=== PATIENT | female | born 1950 | race Caucasian/White ===

== ENCOUNTER 2018-03-12 06:16 | Day surgery (SDC) | payer MEDICARE, SELFPAY ==
[2018-03-12 06:57] VITALS: BP 142/83; PULSE 83; RESP 14; TEMP 36.8; O2SAT 96; BMI 40.6
--- NOTE | 2018-03-12 07:58 | HP.PCM_ITS ---
Problem List (1) Personal history of colonic polyps Status: Acute History of Present Illness Date of Admission: 03/12/18 The patient is a 68 year old F with personal history of colonic polyps. I last performed a colonoscopy on her approximately 3 years ago. She presents today f or repeat colonoscopy. Past Medical History Past Medical History (Chronic Problems): Chronic Problems Hypertension (Chronic) Allergies No Known Allergies Allergy (Verified 03/06/18 11:38) Home Medications: Ambulatory Orders Medication Instructions Recorded ALPRAZolam [Xanax] 0.125 mg PO BID PRN 01/24/13 Enalapril Maleate [Vasotec] 10 mg PO BID 01/24/13 Maprotiline HCl 25 mg PO QHS 01/24/13 Simvastatin [Zocor] 2.5 mg PO QHS 01/24/13 Verapamil [Calan Sr] 240 mg PO DAILY 01/24/13 L.acidoph,Paracasei, B.lactis 1 each PO DAILY 03/06/18 [Probiotic] Multivitamin [Multiple Vitamins] 1 each PO DAILY 03/06/18 Smoking Status: Never smoker Tobacco Use: Non-smoker - *Family History Paternal History Items: No pertinent history Review of Systems Cardiovascular: Denies: Chest Pain, Chest Pressure, Chest Tightness, Palpitations Respiratory: Denies: Cough, Hemoptysis, Shortness of breath at rest, Shortness of breath upon exertion, Wheezing Gastrointestinal: Denies: Abdominal Pain, Constipation, Diarrhea, Hematemesis, Nausea, Melena, Vomiting VTE Information - Inpt Only VTE Present on Admission: No VTE Mechan Device Prophylaxis: None VTE Pharm Prophylaxis ordered?: No Reason prophylaxis not ordered:: Treatment Not Indicated Patient Problems: Active and Suspected Problems Personal history of colonic polyps (Acute) - Physical Exam Lungs: Clear to auscultation Cardiovascular: Regular rate, Regular Rhythm, No murmurs Abdomen: Bowel Sounds Present, Soft, Non Tender, Non-Distended Vital Signs Temp Pulse Resp BP Pulse Ox 98.2 F 83 14 142/83 H 96 03/12/18 06:57 03/12/18 06:57 03/12/18 06:57 03/12/18 06:57 03/12/18 06:57 Oxygen Delivery Method Room Air Weight: 229 lb 8.019 oz Body Mass Index (BMI) 40.6 Assessment/Plan All Active Problems Personal history of colonic polyps (Acute) Fracture of distal radius ulnar angulati (Acute) Right fibular fracture (Acute) I plan to perform a colonoscopy on her. Risk benefits have been reviewed in great detail and the patient agrees to proceed
[2018-03-12 07:59] VITALS: BP 118/72; BP 142/83; PULSE 73; RESP 18; TEMP 36.7; O2SAT 97
--- NOTE | 2018-03-12 08:00 | OP.ENDO_ITS ---
Patient Name: Alyse Jones Procedure Date: 03/12/2018 7:35 AM Date of : 1950 Age: 68 Procedure: Colonoscopy Indications: High risk colon cancer surveillance: Personal history of colonic polyps Providers: Ceasar Barajas MD Medicines: See the Anesthesia note for documentation of the administered medications Patient Profile: This is a 68 year old female. Refer to note in patient chart for documentation of history and physical. Last Colonoscopy: 3 years ago. Complications: No immediate complications. Procedure: Pre-Anesthesia Assessment: - Prior to the procedure, a History and Physical was performed, and patient medications and allergies were reviewed. The patient's tolerance of previous anesthesia was also reviewed. The risks and benefits of the procedure and the sedation options and risks were discussed with the patient. All questions were answered, and informed consent was obtained. Prior Anticoagulants: The patient has taken no previous anticoagulant or antiplatelet agents. ASA Grade Assessment: III - A patient with severe systemic disease. After reviewing the risks and benefits, the patient was deemed in satisfactory condition to undergo the procedure. After I obtained informed consent, the scope was passed under direct vision. Throughout the procedure, the patient's blood pressure, pulse, and oxygen saturations were monitored continuously. The adult colonoscope was introduced through the anus and advanced to 7 cm into the ileum. The colonoscopy was performed without difficulty. The patient tolerated the procedure well. The quality of the bowel preparation was good. Scope In: Scope Out: Findings: The terminal ileum appeared normal. No biopsies or other specimens were collected for this exam. Multiple small-mouthed diverticula were found in the sigmoid colon. The exam was otherwise without abnormality on direct and retroflexion views. Impression: - The examined portion of the ileum was normal. No specimens collected. - Diverticulosis in the sigmoid colon. - The examination was otherwise normal on direct and retroflexion views. Recommendation: - Discharge patient to home. - Resume previous diet. - Continue present medications. - Repeat colonoscopy in 10 days for screening purposes. - Return to primary care physician at appointment to be scheduled. Procedure Code(s): --- Professional --- G0105, Colorectal cancer screening; colonoscopy on individual at high risk Diagnosis Code(s): --- Professional --- Z86.010, Personal history of colonic polyps K57.30, Diverticulosis of large intestine without perforation or abscess without bleeding CPT copyright 2017 [employer]. All rights reserved. The codes documented in this report are preliminary and upon associate professor of musicology review may be revised to meet current compliance requirements. MD Ceasar Flanagan MD 03/12/2018 8:00:29 AM This report has been signed electronically. Number of Addenda: 0 Note Initiated On: 03/12/2018 7:35 AM
[2018-03-12 08:05] VITALS: BP 109/58; BP 142/83; PULSE 71; RESP 16; O2SAT 97
[2018-03-12 08:10] VITALS: BP 114/63; BP 142/83; PULSE 69; RESP 16; O2SAT 99
[2018-03-12 08:14] VITALS: BP 111/61; BP 142/83; PULSE 69; RESP 16; TEMP 36.6; O2SAT 98
[2018-03-12 08:29] VITALS: BP 142/83
== END 2018-03-12 08:44 | disposition home or self-care (01) ==
LOC: EN 06:17 → AC 06:19
PROVIDERS: Family Provider Internal Medicine; PCP Internal Medicine; Referring Provider Surgery; Visit Provider Surgery
PROC: 0DJD8ZZ Inspection of Lower Intestinal Tract, Via Natural or Artificial Opening Endoscopic (ICD-10-PCS; CPT 45378; principal; 2018-03-12 07:25)
DX: Z12.11 Encounter for screening for malignant neoplasm of colon (principal); Z86.010 Personal history of colon polyps; K57.30 Diverticulosis of large intestine without perforation or abscess without bleeding; I10 Essential (primary) hypertension; E78.00 Pure hypercholesterolemia, unspecified; F32.9 Major depressive disorder, single episode, unspecified; F41.9 Anxiety disorder, unspecified; Z85.828 Personal history of other malignant neoplasm of skin; Z79.899 Other long term (current) drug therapy
CPT/HCPCS: G0105; J7120; J1610

== ENCOUNTER → 2021-11-03 | Outpatient (CLI) | payer MEDICARE, SELFPAY ==
--- NOTE | 2021-11-03 07:55 | CT_ITS ---
STUDY: CT SCAN LOWER EXTREMITY RIGHT REASON FOR EXAM: Female, 71 years old. DEFORMITY. MARLENA protocol. RADIATION DOSAGE (If Supplied By Facility): CTDIvol = ( 20.10 ) mGy, DLP = ( 1135.33 ) mGycm. Individualized dose optimization techniques were used for this CT.? TECHNIQUE: Multiple axial tomographic images of the right lower extremity were obtained without intravenous contrast demonstration. Coronal and sagittal reconstruction was obtained as well. COMPARISON: None. FINDINGS: Imaging of the right hip joint was obtained. Mild joint space narrowing. Well-corticated ossification overlying the greater trochanter suggestive of a calcific bursitis. Imaging of the right knee joint was obtained. There is a marked degree of joint space narrowing with degenerative spur formation along the lateral compartment of the knee joint. Mild degree of joint space narrowing involving the medial compartment knee joint. Moderate degree of joint space narrowing and degenerative spur at the patellofemoral joint. Findings suggestive of a joint mice within the joint space. Imaging of the ankle joint was obtained. There is evidence of calcaneal spurs. CT/Extremity Lower without Contra IMPRESSION: Degenerative changes of the right knee joint as described. Electronically Signed: Jude Patricio MD at 12:02 EDT ,
== END | disposition home or self-care (01) ==
PROVIDERS: PCP Internal Medicine; Referring Provider Specialist; Visit Provider Specialist
DX: M21.061 Valgus deformity, not elsewhere classified, right knee (principal)
CPT/HCPCS: 73700

== ENCOUNTER 2021-11-17 13:45 | Observation (INO) | payer MEDICARE, SELFPAY ==
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
--- NOTE | 2021-11-03 08:04 | EKG12_ITS ---
Test Reason : PRE OP Blood Pressure : / mmHG Vent. Rate : 067 BPM Atrial Rate : 067 BPM P-R Int : 150 ms QRS Dur : 086 ms QT Int : 412 ms P-R-T Axes : 024 007 043 degrees QTc Int : 435 ms Sinus rhythm with occasional Premature ventricular complexes Otherwise normal ECG Confirmed by TANYA CHASE, CATHY ([id number]), graphic editor YOSSI MCCARTHY ([id number]) on 11/05/2021 8:02:27 AM Referred By: Yvan Neil Confirmed By:CATHY MARTÍNEZ MD
[2021-11-03 10:06] LABS: Magnesium 1.9 mg/dL (1.6-2.6)
[2021-11-17] VITALS (10 sets, daily range): BP systolic 118–156; BP diastolic 63–96; PULSE 62–77; RESP 15–18; TEMP 36.4–37; O2SAT 93–98; BMI 38.7; BMI 40.0
--- NOTE | 2021-11-17 07:24 | PCM.OPRPT ---
Report of Operation Date of Procedure: 11/17/21 Pre-Operative Diagnosis: Right knee primary osteoarthritis Left knee primary osteoarthritis Post-Operative Diagnosis: Right knee primary osteoarthritis Left knee primary osteoarthritis Surgery/Procedure Performed:: Right minimally invasive robotic total knee replacement Left knee intra-articular corticosteroid injection Description of Surgical Findings:: Stable knee with good patella tracking Surgeon: Yvan Neil interface developer: Ketan Bear Type of Anesthesia: General Anesthesiologist: Samy Vogel Special Medications: 2 g Ancef, 1 g TXA at incision, 1 g TXA closure, 10 mg Decadron, joint cocktail (5 mg Duramorph, 30 mL of 0.5% Ropivicaine, 1000 units of epinephrine, 30 mg of Toradol) Specimen's removed: Bony cuts Estimated Blood Loss (mL): 200 Fluids Replaced: 1100 mL crystalloid Description of Procedure: Implants used: 1. Po size 3 triathlon cruciate retaining distal femoral press-fit component 2. [place] size 3 press-fit tritanium tibial baseplate 3. Po X3 10 mm CS polyethylene 4. Po X3 29 mm asymmetric patella Brief history operative indications: 71-year-old female with history of right knee osteoarthritis with radiographic findings with loss of joint space, osteophyte formation and subchondral sclerosis. Failed conservative measures as mentioned in the H&P. Discussion of total knee arthroplasty as well as risk and benefits were discussed the patient including but not limited to blood loss, DVTs, PEs, neurovascular damage, general risk of anesthesia including loss of life, and stiffness or instability were discussed with patient. Patient demonstrated understanding and was able to sign informed consent. Procedure: On the date of procedure patient's right lower extremity was marked in the preoperative area. The patient was then taken back to the operating room where the patient was placed on the table in the supine position. All bony prominences were identified a well-padded. Anesthesia assumed control of the C-spine and airway and remained controlled throughout the remainder of the procedure. A tourniquet was placed on the right upper thigh and the leg was prepped in a sterile fashion. The surgeon then scrubbed at this time .Upon reentering the room right lower extremity was draped in a standard orthopedic fashion. A timeout was then called and everyone agreed upon the side, the site, the procedure to be performed, patient's identity and antibiotics given. Esmarch bandage was used to exsanguinate the extremity and the tourniquet was placed up to 250 mmHg with the knee in flexion. A midline skin incision was made and sharp dissection was taken down through skin subcutaneous tissue and fat. The standard medial parapatellar incision was made and the patella was subluxed laterally. An Appropriate deep MCL release was done and the fat pad was resected. Our attention was then directed to the patella. The patella was everted and a flat resection was made. The knee was then flexed up in 2 femoral pins were placed inside the incision and 2 tibial pins were placed outside the incision in the medial tibia bicortically. Once this was completed the 2 checkpoints in the femur and tibia were placed. Knee was then flexed up and the bony landmarks were registered. Once this was completed knee was taken through range of motion and manually stressed allowing us to a plan for an appropriate tibial cut. The robotic arm was brought into the field sterilely and checkpoint and saw were registered. Based on the patient's deformity the tibial cut was made neutral to the tibial axis. At this time the tensioner was then placed in the joint and ligament tension was checked at 90 degrees and full extension. Based on the patient's ligamentous tension appropriate adjustments were made to the operative plan and ligament releases were done. Once we were happy with our operative plan with balanced flexion and extension gaps our attention was directed to the femur. The robot was brought into the field sterilely and registered. Posterior condylar cuts, anterior chamfer cuts and anterior cuts were appropriately made for a size 3 femur. When these were completed the saws were switched out in the distal femoral and posterior chamfer cuts were made. Protecting the soft tissue throughout this time. A size 3 tibial base plate was selected. the knee was flexed to 90 degrees and the soft tissues and posterior osteophytes were removed from the joint. 40 cc of the periarticular injection was injected into the posterior medial corner of the joint. The appropriate trials were then placed on the femur and tibia. A trial polyethylene was trialed to ensure proper balancing and stability of the knee. The appropriate tibial internal rotation was then marked with a bovie. Our attention was then directed to the patella. The lug holes were drilled and the patella trial was placed. Patellar tracking was checked and deemed appropriate. Once we were happy lug holes were drilled for the femur and trial components were removed. the tibia was subluxed and pinned into place and the keel was punched and drilled appropriately. Final components were verified and opened, and cement was mixed in a vacuum. [place] Simplex cement was used. The wound was copiously irrigated with normal saline. When the cement was ready the components were impacted into place starting with the tibia, femur and finally cementing the patella. The trial poly component was placed and the knee was placed in full extension. All excess cement was removed in the process. Once the cement had cured the tracking, alignment and balance were verified and a size 10 mm CS polyethylene component was placed. Once the final components were placed a 3-minute dilute Betadine lavage was performed followed by an Irrisept lavage was performed and the wound was copiously irrigated with normal saline solution and the periarticular injection was given. The wound was closed in a layer slaughter fashion using #1 vicryl interrupted sutures for the arthrotomy, 2-0 interrupted Vicryl suture for the subcuticular layer and rod for final skin closure. A sterile compressive dressing was then placed. After the case the contralateral knee was exposed in the lateral suprapatellar portal was prepped in a sterile fashion using alcohol. 22-gauge needle was used to introduce Kenalog and local anesthetic into the knee joint. Needle was withdrawn and Band-Aid was placed. The patient was then awakened from anesthesia, transferred to the [place] and transferred to the PACU for recovery. Post op plan DVT ppx: ASA 81mg BID, thigh high compression stockings Follow up: in office in 2 weeks for wound check PT: to start POD #0 at hospital, outpatient PT should be arranged. Doxycycline 100 mg twice daily due to high risk for postoperative complications related to obesity. My physician bilingual teacher assistant was a vital part of this case. He was important in appropriate retraction during the case, and protection of soft tissues during bony cuts. His intimate knowledge of the case and my steps aided in safe and expedient completion of the procedure as well as appropriate position of the leg during the case. He was also vital in assisting with closure under my direct supervision. Due to the complexity of this case robotic arm was used to assist in the surgery to improve accuracy and clinical outcomes. Complications No intraoperative complications Admit VTE Documentation VTE Present on Admission: No VTE Mechan Device Prophylaxis: SCD's and Thigh High CHERRY Hose VTE Pharm Prophylaxis ordered?: Yes
[2021-11-17] MEDS: Acetaminophen 500 MG Tablet 1000 MG PO ×3 (08:26→21:55)
[2021-11-17] MEDS: Lactated Ringers 1,000 ML 999 ML IV ×2 (08:26→13:00)
[2021-11-17] MEDS: Celecoxib 200 MG Capsule 400 MG PO (08:26)
[2021-11-17] MEDS: Gabapentin 600 MG Tablet PO (08:26)
[2021-11-17] MEDS: Magnesium 2 GM IV (08:27)
[2021-11-17 10:20] LABS: Bedside Glucose 87 mg/dL (74-106)
--- NOTE | 2021-11-17 10:30 | KNEE_PTH ---
PATIENT: TYSON VEGA LOC: MS3 U#:[id number] AGE/SX: 71/F [place] [facility] [place]: Dr. Yvan Neil MD : 1950 BED: 1 DIS: 11/18/2021 SPEC #: [id number] RECD: 11/17/21 17:11 STATUS: SONIA REAbbi #: [id number] GIRISH: 11/17/21 10:[address]: Yvan Neil DEPT: SURGICAL PATHOLOGY RECD BY: Kath Esparza ENTERED: 11/18/21 09:40 SP TYPE: TOTAL KNEE OTHR DR: DO Dr. Cynthia Damon MD Tissues: Knee, NOS Procedures: Decalcification bone/plaque Surgery Specimen Level IV HEADER OPERATION: ERAS, right total knee replacement robotic arm assist left knee PRE-OP DIAGNOSIS: Right and left knee primary osteoarthritis TISSUE SUBMITTED: Bone and tissue right knee MICROSCOPIC DIAGNOSIS Bone and tissue of right knee, total knee resection: Severe degenerative joint disease. Mild synovial hyperplasia. AM:emily 11/22/2021 MICROSCOPIC DESCRIPTION Slides are reviewed. GROSS DESCRIPTION Received is one container designated bone and soft tissue right knee. The specimen consists of multiple fragments of crane-yellow bone measuring in aggregate 13.5 x 9 x 2 cm. Also in the specimen container are multiple fragments of yellow-white soft tissue measuring in aggregate 3 x 2 x 1 cm. A number of bony fragments contain articular surfaces consistent with tibial plateau and femoral condyle and displaying prominent osteophyte formation, eburnation, and bone erosion. [employer] Coordinator sections are submitted in two cassettes as follows: 1 - soft tissue, 2 - bone after decalcification. / AM:emily 11/18/2021 :[address] [facility]: [id number], [id number]
[2021-11-17] MEDS: Cefazolin 2 GM in 0.9% Normal Saline 100 ML IV (10:47)
[2021-11-17] MEDS: TXA 1000mg in NS100 100ml (IVPB at Incision) 660 MG IV (11:02)
[2021-11-17] MEDS: dexAMETHasone 10 MG/ML Vial IV (11:06)
[2021-11-17] MEDS: TXA 1000mg in NS100 100ml (IVPB at Closure) 660 MG IV (12:06)
[2021-11-17] MEDS: Bupivacaine 0.25% 30 ML Vial (12:40)
[2021-11-17] MEDS: Triamcinolone Acetonide 40 MG/ML Vial ×2 (12:40)
--- NOTE | 2021-11-17 13:00 | RAD_ITS ---
INDICATION: post op -- AP and Lateral xray of operative knee in PACU EXAMINATION/TECHNIQUE: X-RAY - RIGHT XR Knee 1 or 2 Views 3 VIEWS COMPARISON: None. FINDINGS: Unremarkable alignment of the femoral and tibial components of the right knee prosthesis. No evidence of lucency surrounding the prosthesis. Soft tissue swelling visualized in the anterior compartment with overlying surgical rod consistent with postoperative changes. No evidence of cortical irregularity or lucency to suggest a fracture, no evidence of lytic or sclerotic bone lesion is seen. RAD/Knee 1 or 2 Views IMPRESSION: Unremarkable alignment of the right knee prosthesis, postoperative changes. Electronically Signed: Mamadou Johnson MD at 13:59 EDT ,
[2021-11-17] MEDS: Lactated Ringers 1,000 ML 125 ML IV (13:54)
[2021-11-17] MEDS: CLARIFY ORDER NOTE (15:26)
[2021-11-17] MEDS: Verapamil SR 240 MG Tablet PO (15:47)
[2021-11-17] MEDS: Aspirin 81 MG TAB.CHEW PO (18:06)
[2021-11-17] MEDS: Ensure Surgery 237 ML LIQUID PO (18:06)
[2021-11-17] MEDS: Cefazolin 1 GM/50 ML BAG IV (19:38)
[2021-11-17] MEDS: Senna/Docusate Sodium 1 Tablet 2 TABLET PO (21:55)
[2021-11-17] MEDS: Atorvastatin Calcium 10 MG Tablet 5 MG PO (21:55)
[2021-11-17] MEDS: Escitalopram Oxalate 10 MG Tablet 5 MG PO (21:56)
[2021-11-17] MEDS: Oxybutynin 5 MG Tablet PO (21:56)
[2021-11-17] MEDS: oxyCODONE 5 MG Tablet PO (21:58)
[2021-11-18 01:26] VITALS: BP 144/73; PULSE 82; RESP 18; TEMP 36.5; O2SAT 96
[2021-11-18] MEDS: Cefazolin 1 GM/50 ML BAG IV (02:30)
[2021-11-18 03:13] VITALS: BMI 40.0
[2021-11-18] MEDS: Acetaminophen 500 MG Tablet 1000 MG PO ×2 (05:18→13:41)
[2021-11-18 06:33] LABS: Hematocrit 37.7 % (37-47); Hemoglobin 12.7 g/dL (12.0-15.0); Mean Corp Hgb Conc 33.7 g/dL (32-36); Mean Corpuscular Volume 89.1 fL (81-99); Mean Platelet Vol. 12.5 fl (6.2-12.0); Platelet Count 207 K/mm3 (150-450); RBC Distribution Width CV 13.1 % (11.6-14.6); RBC Distribution Width SD 42.8 fl (35.1-43.9); Red Blood Count 4.23 M/mm3 (4.2-5.4); White Blood Count 21.1 K/mm3 (4.4-11.0)
[2021-11-18 06:46] LABS: Anion Gap 9 (5-15); BUN 11 mg/dL (7-18); BUN/Creat Ratio 13.9 RATIO (10-20); Calcium,Total 8.8 mg/dL (8.5-10.1); Chloride 107 mmol/L (98-107); Creatinine, Serum 0.79 mg/dL (0.55-1.02); EST Glomerular Filtration Rate 76 mL/min (>60); Est Glom Filt Rate - Afr Amer 92 mL/min (>60); Estimated Creatinine Clearance 42.07 ml/min; Glucose 136 mg/dL (74-106); Potassium 3.4 mmol/L (3.5-5.1); Sodium Level 139 mmol/L (136-145)
[2021-11-18 06:56] VITALS: BMI 40.0
[2021-11-18 07:30] VITALS: BP 123/67; PULSE 69; RESP 18; TEMP 36.3; O2SAT 95
[2021-11-18] MEDS: Multivitamins,Therapeutic Tablet 1 TABLET PO (08:19)
[2021-11-18] MEDS: Senna/Docusate Sodium 1 Tablet 2 TABLET PO (08:19)
[2021-11-18] MEDS: Loratadine 10 MG Tablet PO (08:20)
[2021-11-18] MEDS: oxyCODONE 5 MG Tablet PO ×2 (08:20→12:48)
[2021-11-18] MEDS: Lisinopril 10 MG Tablet PO (08:20)
[2021-11-18] MEDS: Famotidine 20 MG Tablet PO (08:21)
[2021-11-18] MEDS: Aspirin 81 MG TAB.CHEW PO (08:21)
[2021-11-18] MEDS: Pantoprazole Sodium 40 MG Tablet PO (08:21)
[2021-11-18] MEDS: Ensure Surgery 237 ML LIQUID PO (08:21)
--- NOTE | 2021-11-18 10:38 | PCM.PN.ORT ---
Subjective Subjective The patient was sitting in bedside chair upon examination with friend present. Patient denies any chest pain, shortness of breath, dizziness, lightheadedness, nausea or vomiting, or calf pain. Pain is controlled on medications. No adverse overnight events. Patient overall is doing very well today. She tolerated therapy and walked over 200 feet. Patient does wish to try to go home today. Her pain has been very well controlled. Patient also reports the left knee feels much better today since the injection. Objective Data Objective Data Vital Signs: Vital Signs Temp Pulse Resp BP Pulse Ox O2 Del Method O2 Flow Rate 97.3 F L 69 18 123/67 H 95 Room Air 4 11/18/21 07:30 11/18/21 07:30 11/18/21 07:30 11/18/21 07:30 11/18/21 07:30 11/18/21 07:30 11/17/21 13:59 Oxygen Flow Rate (L/min) 4 Oxygen Delivery Method Room Air Weight: 102.512 kg Body Mass Index (BMI) 40.0 Intake & Output: Intake and Output for Last 24 Hours 11/16/21 11/17/21 11/18/21 23:59 23:59 23:59 Intake Total 4164 / 4164 170 / 170 Balance 4164 / 4164 170 / 170 Lab / Micro Data Result Diagrams: 11/18/21 04:44 11/18/21 04:44 Labs: Laboratory Results - last 24 hr 11/18/21 04:44: WBC 21.1 H, RBC 4.23, Hgb 12.7, Hct 37.7, MCV 89.1, MCH 30.0, MCHC 33.7, RDW Std Deviation 42.8, RDW Coeff of Sylvester 13.1, Plt Count 207, MPV 12.5 H 11/18/21 04:44: Sodium 139, Potassium 3.4 L, Chloride 107, Carbon Dioxide 23.0, Anion Gap 9, BUN 11, Creatinine 0.79, Estim Creat Clear Calc 42.07, Est GFR (MDRD) Af Amer 92, Est GFR (MDRD) Non-Af 76, BUN/Creatinine Ratio 13.9, Glucose 136 H, Calcium 8.8 Micro: Microbiology 11/03/21 08:40 Swab (Method) Nasal Screen MRSA/MSSA - Final Radiography Diagnostic Testing: Radiology Impression Knee X-Ray 11/17/21 13:00 IMPRESSION: Unremarkable alignment of the right knee prosthesis, postoperative changes. Electronically Signed: Mamadou Johnson MD at 13:59 EDT , Physical Exam Narrative Vital signs stable and afebrile. SCDs and CHERRY hose are in place bilaterally Patient is able to plantarflex and dorsiflex actively. Sensation is intact to light touch to saphenous, sural, superficial and deep peroneal, and tibial distribution. Proximal pin site dressing and main Mepilex dressing is clean dry and intact. Mild drainage from the distal pin site Negative Homans bilaterally, negative signs and symptoms of DVT. Const alert, oriented x3 and no apparent distress Assessment & Plan Assessment/Plan (1) Status post total right knee replacement: PLAN: 1. S/P right total knee arthroplasty and left knee corticosteroid injection POD #1 2. Continue Pain Medications: Tylenol, meloxicam, oxycodone. Do not take any other nonsteroidal anti-inflammatories while using meloxicam/Mobic. 3. DVT Prophylaxis: Take 81 mg aspirin twice daily for 4 weeks postoperatively for DVT prophylaxis. Patient denies previous history of DVT or pulmonary embolism 4. PT/OT: Weightbearing as tolerated with walker 5. H & H: 12.7/37.7, asymptomatic. Postoperative anemia secondary to acute blood loss from surgery without any intra operative complications. 6. Reactive leukocytosis: Currently 21.1, afebrile. Patient did receive Decadron intraoperatively. Patient also underwent a left knee corticosteroid injection. I do feel from the 2 different corticosteroids this has caused a reactive leukocytosis. She has no underlying signs of infection. 7. Continue postoperative medical management per medicine 8. Continue antibiotics for 2 weeks postoperatively due to high risk for postoperative complications related to obesity. Discussed with the patient potential side effects which could include sensitivity to the sunlight and should take appropriate precautions. Also recommended taking a probiotic for 2 weeks while on the antibiotic. 9. Encouraged Incentive Spirometry 10. Disposition: Patient overall is doing very well. Plan will be for discharge home today as long as cleared by medicine. Patient would like the prescriptions E scribed to [facility] in [facility]. All medications were discussed in detail. She will follow-up per postoperative worksheet. Patient has outpatient physical therapy established. She will contact her office upon discharge with any concerns or questions. I have reviewed the [employer] Automated Rx Reporting System (OARRS) report for this patient for refill pattern and other prescriber involvement as part of the appropriate surveillance for the provision of acute and chronic controlled medications. The report was requested and reviewed on the date of this entry and was considered in the prescribing process. This dictation was created using voice recognition software. Phonetic and/or grammatical errors may exist.
--- NOTE | 2021-11-18 10:43 | DCINST_ITS ---
Discharge Instructions Diet Discharge Diet: No restrictions Activity Discharge Activity: May Not Drive (No driving for 6 weeks postoperatively. Must also be off all narcotics and able to walk 100 feet without the use of cane or walker) May shower in (days): 1 (Please turn dressing away from water. Okay to get wet as long as dressing is intact to skin.) Ice area for (Minutes): 20 (Every 1-2 hours while awake[address] Please place barrier between the skin and ice pack.) Weight Bearing Status: Weight bearing as tolerated (With walker) Keep extremity elevated above heart level: Operative Extremity Dressing / Incision Call your doctor if your incision/area has: Continuous Slow Oozing, Sudden Increased Bleeding, Increased Pain/ Swelling, Increased Redness and Foul Smelling Discharge Call your doctor if you observe: Fever of 101 or Higher, Coldness, Increased Pain, Numbness or Tingling, Change in Color, Shortness of breath, Chest pain, Calf discomfort and Uncontrolled pain Remove Dressing in: 4 days (Okay to remove dressing on November 22, 2021) Additional Dressing/Incision Instructions:: Follow [facility] Post-op Instructions. Once postoperative dressing has been removed only use gentle soap and water over the incision. Do not use any ointments, Neosporin, salves, hydrogen peroxide, alcohol pads over the incision for 6 weeks postoperatively. Do not submerge underwater for 6 weeks postoperatively. Continue with CHERRY hose/elastic stockings for 2 weeks postoperatively. May remove at nighttime but needs to be placed back on the leg during the day. Do NOT use alcohol with narcotic pain medication. Do NOT make important decisions while taking narcotic medication. If you have problems with taking your medication (rash, itching, nausea, etc.) call the office at once. Follow Up Care Test Results: Test results from this visit will be discussed in further detail at your follow- up appointment, if applicable. Discharge Plan Admission Admit Date/Time: 11/17/21 13:45 Attending Provider: Yvan Neil Primary Care Provider: Cynthia Quiroz Consulting Providers: Yefri De La Garza Discharge Orders/Prescriptions Prescriptions: New acetaminophen 500 mg Tablet 1,000 mg PO Q8 Qty: 0 0RF Rx Instructions: Do not take more than 3000 mg Tylenol in a 24-hour period. aspirin 81 mg Tablet,Chewable 81 mg PO BIDCM 30 Days Qty: 60 0RF Rx Instructions: Take 81 mg aspirin twice daily for 4 weeks postoperatively for DVT prophylaxis. oxycodone 5 mg Tablet 5 - 10 mg PO Q4H PRN PRN (Reason: Pain Score 4-10) 5 Days Qty: 60 0RF sennosides-docusate sodium [Stool Softener-Stimulant Laxat] 8.6-50 mg Tablet 2 tab PO BID Qty: 20 0RF Rx Instructions: Take until first bowel movement, then as needed Continued enalapril maleate 10 MG tablet 10 mg PO DAILY simvastatin [Zocor] 5 MG tablet 10 mg PO QHS verapamil 240 MG tablet 240 mg PO DAILY multivitamin [Multiple Vitamins] 1 EACH tablet 1 ea PO DAILY L.acidoph, paracasei,B. lactis 1 EACH capsule 1 ea PO DAILY meloxicam [Mobic] 15 mg Tablet 15 mg PO DAILY oxybutynin chloride 5 mg Tablet 5 mg PO QHS loratadine [Claritin] 10 mg Tablet 10 mg PO DAILY escitalopram oxalate 5 mg Tablet 5 mg PO QHS omeprazole 40 mg Capsule,Delayed Release(Dr/Ec) 40 mg PO DAILY Referrals / Follow Up: Physical,Therapy [Other] - 11/22/21 10:30 am (with Amy) Cynthia Quiroz MD [Primary Care Provider] - Ketan Bear PA-C [Med Staff - [facility]] - 12/02/21 2:00 pm Disposition Disposition (needs filled in before D/C Order can be placed): Home, Self Care
--- NOTE | 2021-11-18 11:15 | CASEMGMT ---
ASIA ESPANA Assessment: Face to Face with pt for initial transition planning/care coordination assessment. ASIA ESPANA introduced self and role at [facility], pt voices understanding and consents to assessment. Pt is A/O x4 and answers all questions appropriately at this time. Pt friend Roseann present in room. Care providers, pharmacy, and demographics verified/updated. Admitting Dx: R Total Knee with [place] PCP:Richie Specialists:alicja Neil Preferred Pharmacy: [facility] Insurance: [employer] [facility] Prescription Benefit: yes LW/HPOA: Pt has a DPOA on file at [facility]. Her DPOA is Roseann Hobson. Pt asks how to go about getting a LW. Provided her with rack card for [employer]. LNOK: Mando Jones, brother; Roseann Hobson, friend Living Arrangements: Pt lives with Roseann in a two story house with 2 steps to enter with a rail. Pt reports she was I in ADL's and denies concerns at home. Transportation: Pt drives self and denies concerns with transportation. Roseann will transport pt to medical appts until she can drive again. DME/HHC/SNF: Pt has [facility] at home as well as FWW, 2 canes, shower chair, scraper meat and grab bars in the bathroom. Pt denies hx of HHC or SNF stays. Pt states no concerns with going home at time of dc. SHe has her outpt therapy set up for Monday at [facility]. Pt states no further concerns/needs. CM to follow. Advised pt to ask CM if any further question/concerns/needs arise, voices understanding. Pt Goal: Home with outpt therapy set up. Plan: Home with outpt therapy set up.
[2021-11-18 12:52] VITALS: BP 127/56; PULSE 72; RESP 18; TEMP 36.8; O2SAT 98
== END 2021-11-18 14:05 | disposition home or self-care (01) ==
LOC: SDC 13:46 → MS3 13:46
PROVIDERS: Anesthesiology; Admitting Provider Specialist; PCP Internal Medicine; Referring Provider Specialist; Visit Provider Specialist
PROC: (CPT 27447; principal; 2021-11-17 10:00)
DX: M17.0 Bilateral primary osteoarthritis of knee (principal); E66.9 Obesity, unspecified; I10 Essential (primary) hypertension; M21.061 Valgus deformity, not elsewhere classified, right knee; M21.162 Varus deformity, not elsewhere classified, left knee; Z68.39 Body mass index [BMI] 39.0-39.9, adult; E78.00 Pure hypercholesterolemia, unspecified; Z79.899 Other long term (current) drug therapy; K21.9 Gastro-esophageal reflux disease without esophagitis; F41.9 Anxiety disorder, unspecified
CPT/HCPCS: 27447; 20610; S2900; 01402; 64447; 36415; 73560; 80048; 82962; 83735; 85027; 87081; 88305; 88311; 93005; 96361; 96365; 96366; 97110; 97116; 97162; 97166; 97530; 99218; 99251; C1776; J7120; G0378; G0463